=== PATIENT | male | born 2000 | race Caucasian/White ===

== ENCOUNTER 2022-11-07 15:24 | Emergency (ER) | payer OTHER, SELFPAY ==
--- NOTE | 2022-11-07 15:28 | ED.EYEPROB ---
HPI - Eye Problem General Chief complaint: Eye Problems Stated complaint: right eye swollen Time Seen by Provider: 11/07/22 15:36 Source: patient and RN notes reviewed Mode of arrival: ambulatory Limitations: no limitations History of Present Illness HPI Narrative: 22-year-old male presents with concern for his right eye swelling. He reports prior to arrival he was stung by a wasp on the bridge of his nose. Reports after or about 20 minutes he noticed that his right eye upper lid and lower lid have become swollen. He denies vision changes, drainage from the eye, eye pain. Reports some tenderness to palpation to the upper and lower lid. chief complaint: other (Eye swelling) Related Data Allergies Allergy/AdvReac Type Severity Reaction Status Date / Time Penicillins Allergy Intermediate rash Verified 11/07/22 15:35 Review of Systems Review of Systems: CONSTITUTIONAL: Denies malaise, chills, sweats, or fever. EYES: Denies eye redness or discharge. ENT: Denies rhinorrhea, congestion, swollen lips, swollen tongue CARDIOVASCULAR: Denies chest pain, palpitations, or edema. RESPIRATORY: Denies cough or dyspnea. GASTROINTESTINAL: Denies abdominal pain, nausea, vomiting SKIN: Reports swollen and red upper and lower eyelid NEUROLOGIC: Denies headache. All systems reviewed & are unremarkable except as noted in HPI and below PMFSH Family History Family History (Updated 08/16/17 @ 08:00 by DOCTOR UNKNOWN) Grandparent Diabetes mellitus Social History Social History Smoking status: Never smoker Alcohol intake: never Comments At time of signature, agree with nursing past medical, surgical, social and family history. There is no relevant family history pertinent to the presenting complaint Exam Narrative: GENERAL: Well-appearing, well-nourished, and in no acute distress. HEAD: Normocephalic, atraumatic. EYES: PERRLA, conjunctivae clear, and EOMI. ENT: Mucous membranes moist. Oropharynx without edema, erythema or lesions. NECK: Supple. No lymphadenopathy CHEST: Clear to auscultation. No respiratory distress. HEART: Regular rate and rhythm. SKIN: Warm, dry. Moderate superficial edema to the upper and lower lid with mild erythema, no induration noted. Small puncture wound noted to the bridge of the nose without foreign body NEURO: Alert and oriented x3. PSYCH: Normal mood and affect Course Course Emergency Course: Patient is aware of diagnosis, understands and agrees to treatment plan. Anticipatory guidance given. Patient agrees to follow-up as directed and is aware of reasons to seek care at the emergency department. Portions of this record may have been created with voice recognition software Level of Care: Express Care Visit Vital Signs Vital signs: Reviewed. MDM - Eye Problem MDM Narrative Medical decision making narrative: No soft palate or uvula edema, no tongue or lip edema or other mucosal involvement, no respiratory compromise, no stridor, no wheezing, no wheezing, no history of syncope, no hypotension, no nausea, vomiting, or diarrhea. Critical Care Time Critical Care Time Critical Care Time: No Discharge Plan Discharge Clinical Impression: Wasp sting Patient Disposition: Home, Self-Care Condition: Stable Instructions: Insect Bite or Sting (ED) Additional Instructions: Apply ice to the sting site and swollen area for pain and itch relief. Apply ice for 20 minutes once every hour as needed. Wrap the ice in a towel or keep a cloth between the ice and skin to keep from freezing the skin. Taking an antihistamine such as diphenhydramine (Benadryl) every 6 hours or a nonsedating one such as Zyrtec daily will help with itching and swelling. Take acetaminophen (Tylenol) or ibuprofen (Motrin) for pain relief as needed. Wash the sting site with soap and water. Apply hydrocortisone cream to the sting site and surrounding skin can help relieve redness and itching. Please follow-up w
[2022-11-07 15:34] VITALS: BP 130/72; PULSE 80; RESP 16; TEMP 37.3; O2SAT 99
[2022-11-07] MEDS: methylPREDNISolone SOD SUCC 125 MG VIAL IM (15:46)
== END 2022-11-07 16:00 | disposition home or self-care (01) ==
PROVIDERS: Emergency Provider Nurse Practitioner; PCP Family Medicine
DX: T63.461A Toxic effect of venom of wasps, accidental (unintentional), initial encounter (principal)
CPT/HCPCS: 96372; 99213; G0463; J2930

== ENCOUNTER 2024-04-13 14:36 | Outpatient (CLI) | payer OTHER, SELFPAY ==
--- NOTE | ~2024-04-13 | CT_ITS ---
EXAMINATION: CT soft tissue neck w con DATE: 04/13/2024 14:56 INDICATION: Hypertrophy of tonsils. TECHNIQUE: Computed tomography (CT) of the neck was performed with 75 mL Omnipaque-350 intravenous co ntrast. Automated exposure control and iterative reconstruction technique were employed. The dose-bigg gth product was 553.44 mGy-cm. COMPARISON: None FINDINGS: There is a 4 mm nodule in right thyroid lobe, likely not clinically significant. The adenoi ds are enlarged. There are calcifications in right palatine tonsil. No abscess. There are no patholog ically enlarged lymph nodes. There is mild mucosal thickening in the paranasal sinuses. The mastoid a ir cells are normal. There is mild cervical kyphosis. IMPRESSION: 1. Enlarged adenoids. Reviewed, dictated and finalized at location A. [facility]TER IMPRESSION: 1. Enlarged adenoids.
== END 2024-04-13 14:37 | disposition home or self-care (01) ==
PROVIDERS: PCP Family Medicine; Visit Provider Nurse Practitioner Family
DX: J35.2 Hypertrophy of adenoids (principal); J35.1 Hypertrophy of tonsils
CPT/HCPCS: 70491; Q9967

== ENCOUNTER 2024-10-10 14:53 | Outpatient (CLI) | payer OTHER, SELFPAY ==
--- NOTE | ~2024-10-10 | US_ITS ---
Thyroid ultrasound. Clinical History: Thyroid nodule Findings: Real-time sonography of the thyroid gland was performed. The right lobe measures 5.6 x 2.1 x 2.0 cm. The left lobe measures 5.4 x 1.7 x 1.8 cm. The isthmus is 3 mm in AP diameter. There is benign cystic nodule in the right thyroid lobe measuring 6 mm in diameter. Impression: No significant abnormality.. Reviewed, dictated and finalized at location . Impression: No significant abnormality..
== END 2024-10-10 14:54 | disposition home or self-care (01) ==
LOC: MICIMG 14:53
PROVIDERS: PCP Family Medicine; Visit Provider Nurse Practitioner Family
DX: E04.1 Nontoxic single thyroid nodule (principal)
CPT/HCPCS: 76536